=== PATIENT | male | born 1995 | race Hispanic/Latino ===

== ENCOUNTER 2017-05-11 15:46 | Emergency (ER) | payer SELFPAY, OTHER ==
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
[2017-05-11] MEDS ORDERED: Ketorolac Tromethamine 30 MG/ML VIAL ONE (16:54)
== END 2017-05-11 17:16 | disposition home or self-care (01) ==
LOC: ERS 15:46
DX: S40.012A Contusion of left shoulder, initial encounter (principal); V49.50XA Passenger injured in collision with unspecified motor vehicles in traffic accident, initial encounter; F17.210 Nicotine dependence, cigarettes, uncomplicated
CPT/HCPCS: 96372; J1885

== ENCOUNTER 2018-06-24 12:57 | Emergency (ER) | payer SELFPAY, OTHER ==
[2018-06-24 13:25] LABS: #Basophils 0.1 thou/uL (0.0-0.2); #Eosinphils 0.2 thou/uL (0.0-0.7); #Lymphocytes 2.1 thou/uL (1.20-3.40); #Monocytes 0.7 thou/uL (0.11-0.59); %Basophils 0.7 % (0.0-1.0); %Eosinophils 1.8 % (0.0-10.0); %Lymphocytes 23.2 % (21.0-51.0); %Monocytes 7.8 % (0.0-10.0); %Neutrophils 66.6 % (42.0-75.0); Hemoglobin 16.3 g/dL (14.0-18.0); Mean Corpuscular HGB CONC 32.9 g/dL (32.0-36.0); Mean Corpuscular Volume 94.5 fL (78.0-98.0); Mean Platelet Volume 6.9 fL (7.4-10.4); Platelet Count 347 thou/uL (130-400); RBC Distribution Width 12.1 % (11.5-14.5); Red Blood Cell (RBC) Count 5.23 mill/uL (4.70-6.10); White Blood Cell (WBC) Count 9.1 thou/uL (4.8-10.8)
[2018-06-24 13:48] LABS: ALT (SGPT) 72 U/L (8-55); AST (SGOT) 35 U/L (5-34); Albumin 5.1 g/dL (3.5-5.0); Alkaline Phosphatase 93 U/L (40-150); Anion Gap 16 mmol/L (10-20); BUN (Urea Nitrogen) 13 mg/dL (8.9-20.6); Bilirubin, Total 0.4 mg/dL (0.2-1.2); CK (CPK) 405 U/L (30-200); Calc. Creatinine Clearance 0 mL/min (70-130); Carbon Dioxide 23 mmol/L (22-29); Chloride 104 mmol/L (98-107); Estimated GFR-MDRD Greater than 90; Globulin 2.7 g/dL (2.4-3.5); Glucose 102 mg/dL (70-105); Lipase 32 U/L (8-78); Potassium 4.2 mmol/L (3.5-5.1); Protein, Total 7.8 g/dL (6.0-8.3); Sodium 139 mmol/L (136-145)
--- NOTE | 2018-06-24 14:04 | RAD ---
CHEST 1 VIEW: Date: 06/24/18 INDICATION: Chest pain. COMPARISON: Prior exam dated 01/11/17. FINDINGS: Lungs are clear. Heart size normal. No acute osseous abnormality is evident. IMPRESSION: No acute abnormality. POS: [facility]
== END 2018-06-24 13:47 | disposition left against medical advice (07) ==
LOC: ERS 12:57
DX: F14.10 Cocaine abuse, uncomplicated (principal); R07.9 Chest pain, unspecified; F17.210 Nicotine dependence, cigarettes, uncomplicated
CPT/HCPCS: 36415; 71045; 80053; 82550; 83690; 84484; 85025; 93005